=== PATIENT | male | born 1975 | race Caucasian/White ===

== ENCOUNTER 2024-10-22 08:13 | Outpatient (CLI) | payer OTHER, SELFPAY | END 2024-10-22 08:14 | disposition home or self-care (01) | LOC: NFLDREF 18:45 | PROVIDERS: PCP Physician Assistant Medical; Referring Provider Physician Assistant Medical; Visit Provider Physician Assistant Medical | DX: E78.5 Hyperlipidemia, unspecified (principal); Z11.3 Encounter for screening for infections with a predominantly sexual mode of transmission; Z11.59 Encounter for screening for other viral diseases; Z13.0 Encounter for screening for diseases of the blood and blood-forming organs and certain disorders involving the immune mechanism | CPT/HCPCS: 80053; 80061; 86703; 86803 ==

== ENCOUNTER 2024-11-15 06:31 | Outpatient (CLI) | payer OTHER, SELFPAY ==
--- NOTE | 2024-11-15 08:14 | P.ANES_ITS ---
Anesthesia Charges Start Date/Time Anesthesia Start Date: 11/15/24 Anesthesia Start Time: 07:15 Stop Date/Time Anesthesia Stop Date: 11/15/24 Anesthesia Stop Time: 08:10 Coding CPT Codes CPT Codes: OTF LWConsuelo INTST NDSC NOS - [id number] ([id number]) P2 - PATIENT W/MILD SYST DISEASE, QX - MANAGER COMMISSION SVC W/ MD MED DIRECTION, QK - JOB SPECIFICATION WRITER 2-4 CNCRNT ANES PROC
--- NOTE | 2024-11-15 08:14 | W.ANESCHARGE ---
Anesthesia Charges Start Date/Time Anesthesia Start Date: 11/15/24 Anesthesia Start Time: 07:15 Stop Date/Time Anesthesia Stop Date: 11/15/24 Anesthesia Stop Time: 08:10 Coding CPT Codes CPT Codes: OTF LWConsuelo INTST NDSC NOS - 30963 ([id number]) P2 - PATIENT W/MILD SYST DISEASE, QX - POLICE PATROL OFFICER SVC W/ MD MED DIRECTION, QK - COMPOSITION WORKER 2-4 CNCRNT ANES PROC
--- NOTE | 2024-11-15 08:15 | P.ANES_ITS ---
Anesthesia Charges Start Date/Time Anesthesia Start Date: 11/15/24 Anesthesia Start Time: 07:15 Stop Date/Time Anesthesia Stop Date: 11/15/24 Anesthesia Stop Time: 08:10 Coding CPT Codes CPT Codes: OTF LWR INTST NDSC NOS - [id number] ([id number]) QK - DIESEL MECHANIC CONSTRUCTION 2-4 CNCRNT OTF PROC, QX - MOLDER MACHINE TENDER SVC W/ MD MED DIRECTION, P2 - PATIENT W/MILD SYST DISEASE
--- NOTE | 2024-11-15 08:15 | W.ANESCHARGE ---
Anesthesia Charges Start Date/Time Anesthesia Start Date: 11/15/24 Anesthesia Start Time: 07:15 Stop Date/Time Anesthesia Stop Date: 11/15/24 Anesthesia Stop Time: 08:10 Coding CPT Codes CPT Codes: OTF LWR INTST NDSC NOS - [id number] ([id number]) QK - DYNAMICS AX SOLUTION ARCHITECT 2-4 CNCRNT OTF PROC, QX - DRAWER IN SVC W/ MD MED DIRECTION, P2 - PATIENT W/MILD SYST DISEASE
== END 2024-11-15 06:32 | disposition home or self-care (01) ==
LOC: OP CLINIC 06:32
PROVIDERS: PCP Physician Assistant Medical; Visit Provider Surgery
DX: Z12.11 Encounter for screening for malignant neoplasm of colon (principal); D12.1 Benign neoplasm of appendix; D12.2 Benign neoplasm of ascending colon; D12.8 Benign neoplasm of rectum; Z86.0100 Personal history of colon polyps, unspecified
CPT/HCPCS: 00811; 45385; 88305; J2704